=== PATIENT | male | born 2000 | race Caucasian/White ===

== ENCOUNTER 2025-04-09 10:57 | Emergency (ER) | payer OTHER ==
[~2025-04-09] VITALS: Ht 175.3 cm; Wt 122.7 kg
[2025-04-09 11:02] VITALS: TEMP 98
[2025-04-09] MEDS: ACETAMINOPHEN 500 MG TABLET PO ONE (13:52)
[2025-04-09 14:01] VITALS: BP 133/85; PULSE 84; RESP 16; O2SAT 98
== END 2025-04-09 14:02 | disposition home or self-care (01) ==
LOC: EMS 11:01
DX: S93.501A Unspecified sprain of right great toe, initial encounter (principal); W18.39XA Other fall on same level, initial encounter; Y93.89 Activity, other specified; Y92.39 Other specified sports and athletic area as the place of occurrence of the external cause; Y99.0 Civilian activity done for income or pay
CPT/HCPCS: 99283